=== PATIENT | female | born 1990 | race Caucasian/White ===

== ENCOUNTER 2018-04-17 15:50 | Emergency (ER) | payer OTHER ==
[~2018-04-17] VITALS: Ht 185.4 cm; Wt 84.1 kg
[2018-04-17 16:06] VITALS: BP 140/65; TEMP 98.3
[2018-04-17] MEDS ORDERED: VALTREX1 GM PO (16:34)
[2018-04-17 16:50] VITALS: PULSE 90
== END 2018-04-17 16:51 | disposition home or self-care (01) ==
LOC: COL.ER 15:50
DX: K12.0 Recurrent oral aphthae (principal)

== ENCOUNTER 2018-05-21 19:21 | Emergency (ER) | payer OTHER ==
[~2018-05-21] VITALS: Ht 185.4 cm; Wt 84.1 kg
[~2018-05-21 19:21] MED LIST: VALTREX1 GM PO
[2018-05-21 19:28] VITALS: BP 139/69; PULSE 87; TEMP 99.1
[2018-05-21] MEDS ORDERED: VYVANSE50 MG PO (19:31)
== END 2018-05-21 19:52 | disposition home or self-care (01) ==
LOC: COL.ER 19:21
DX: B37.3 Candidiasis of vulva and vagina (principal); J02.9 Acute pharyngitis, unspecified

== ENCOUNTER 2018-06-21 15:38 | Emergency (ER) | payer OTHER ==
[~2018-06-21] VITALS: Ht 185.4 cm; Wt 81.8 kg
[~2018-06-21 15:38] MED LIST changes: +VYVANSE50 MG PO
[2018-06-21 15:41] VITALS: BP 141/78; TEMP 98.8
[2018-06-21 16:42] VITALS: PULSE 90
== END 2018-06-21 16:43 | disposition home or self-care (01) ==
LOC: COL.ER 15:38
DX: J02.9 Acute pharyngitis, unspecified (principal); F90.9 Attention-deficit hyperactivity disorder, unspecified type